=== PATIENT | male | born 1985 | race Two or more races ===

== ENCOUNTER 2022-08-24 22:42 | Emergency (ER) | payer SELFPAY ==
[~2022-08-24] VITALS: Ht 185.4 cm; Wt 113.4 kg
--- NOTE | 2022-08-24 22:47 | NUR ---
called for triage not in the waiting room
--- NOTE | 2022-08-24 22:55 | NUR ---
called for triage not in the waiting room
--- NOTE | 2022-08-24 23:25 | NUR ---
Pt is noted alertt, responsive as he came in C/O Lacerations to Lips. Pt care continue as awaits MD orders.
[2022-08-24] MEDS ORDERED: LIDOCAINE HCL/PF 1% 30 ML VIAL TP ONE (23:30)
[2022-08-24] MEDS ORDERED: TDAP [DIPH/PERTUSSIS/TET] 0.5 ML VIAL IM ONE (23:30)
[2022-08-24] MEDS ORDERED: LIDOCAINE HCL/PF 1% 30 ML SDV ONE (23:33)
[2022-08-24 23:34] VITALS: BP 150/82
--- NOTE | 2022-08-24 23:38 | NUR ---
Tdap 0.5mg SUBQ given as ordered. Pt care continue.
== END 2022-08-25 00:18 | disposition home or self-care (01) ==
LOC: ER 22:44
DX: S01.511A Laceration without foreign body of lip, initial encounter (principal); Z60.2 Problems related to living alone; W22.8XXA Striking against or struck by other objects, initial encounter; Y93.39 Activity, other involving climbing, rappelling and jumping off; Y92.89 Other specified places as the place of occurrence of the external cause; Y99.8 Other external cause status
CPT/HCPCS: 99284; 40650; 90471; J3490 ×2; A6403